=== PATIENT | male | born 1995 | race Caucasian/White ===

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

== ENCOUNTER 2017-02-01 20:37 | Emergency (ER) | payer BC ==
[~2017-02-01] VITALS: Ht 165.1 cm; Wt 64.0 kg
[2017-02-01 20:43] VITALS: TEMP 36.7; Ht 165.1 cm; Wt 64.0 kg
[2017-02-01] MEDS ORDERED: KETOROLAC TROMETHAMINE 30 MG/ML VIAL IV STA (20:59)
[2017-02-01] MEDS ORDERED: SODIUM CHLORIDE 0.9% 1000ML 1,000 ML IV STA (20:59)
[2017-02-01] MEDS ORDERED: FEXO1TAB46 PO (21:03)
[2017-02-01] MEDS ORDERED: IBUP-1050 PO (21:03)
[2017-02-01 21:28] LABS: BASO % 0.3 %; BASO ABS # 0.02 K/uL (0-0.2); COMPLETE YES; EOS % 2.9 %; HEMATOCRIT 45.1 % (42-52); IG% 0.1 %; LYMPH % 17.5 %; LYMPH ABS # 1.34 K/uL (1.2-3.4); MEAN CELL VOLUME 86.1 fL (80-100); MEAN CORPUSCULAR HEMOGLOBIN 29.4 pg (25-34); MEAN CORPUSCULAR HGB CONC 34.1 g/dl (32-36); MEAN PLATELET VOLUME 10.4 fL (7.4-10.4); MONO % 7.5 %; NEUT % 71.7 %; PLATELET COUNT 227 K/uL (130-400); RED BLOOD COUNT 5.24 M/uL (4.7-6.1); WHITE BLOOD COUNT 7.64 K/uL (4.8-10.8)
--- NOTE | 2017-02-01 21:42 | DIAGNOSTIC IMAGING REPORT ---
CHEST ONE VIEW PORTABLE HISTORY: 21 years-old Male Chest Pain acute atypical chest pain COMPARISON: None available TECHNIQUE: Portable upright AP view of the chest FINDINGS: Cardiomediastinal and hilar silhouettes are within normal limits. There is no pneumothorax, pleural effusion, focal airspace consolidation or overt pulmonary edema. Bones of the chest are grossly intact. IMPRESSION: Normal chest radiograph. The above report was generated using voice recognition software. It may contain grammatical, syntax or spelling errors. Electronically signed by: Tung Hari M.D. 02/01/2017 9:40 PM Dictated Date/Time: 02/01/2017 9:39 PM
[2017-02-01 21:48] LABS: BLOOD UREA NITROGEN 17 mg/dl (7-18); BUN/CREATININE RATIO 16.4 (10-20); CALCIUM 8.8 mg/dl (8.5-10.1); CARBON DIOXIDE 29 mmol/L (21-32); CHLORIDE 105 mmol/L (98-107); CREATININE 1.04 mg/dl (0.60-1.40); GLUCOSE 121 mg/dl (70-99); POTASSIUM 4.3 mmol/L (3.5-5.1); SODIUM 139 mmol/L (136-145)
[2017-02-01 23:01] VITALS: BP 127/68
[2017-02-01] MEDS ORDERED: VNTHFA/IN INH (23:46)
[2017-02-01 23:51] VITALS: PULSE 77; O2SAT 96
--- NOTE | 2017-02-02 00:14 | EMERGENCY ROOM VISIT NOTE ---
History Report prepared by Tonny: Kathy Mccracken Under the Supervision of: Dr. Mendez Moore D.O. First contact with patient: 20:45 Chief Complaint: CARDIAC ASSESSMENT Stated Complaint: CHEST TIGHTNESS,SOB Nursing Triage Summary: Pt reports substernal cp with sob. States pain radiates into both arms and both sides of jaw. 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 Denies recent alcohol or drug use. History of Present Illness The patient is a 21 year old male who presents to the Emergency Room with complaints of chest pain beginning an hour ago. He states that laying down exacerbates the pain and sitting up alleviates the pain. He denies alcohol use. He reports that he sometimes smokes, but not often, but states that he smoked tonight, He also reports that he has not slept much because of studying and that he has had a lot of caffeine. The patient reports having bilateral arm pain. He denies coughing up blood. The patient denies a history of diabetes, hypertension, CAD, family history of sudden at a young age and hyperlipidemia. Patient denies swelling of calves, recent trips, history of immobilization or recent surgery, prior history of DVT, hemoptysis, history of malignancy, or control/estrogen use. Source of History: patient Onset: 1 hour ago Position: chest Modifying Factors (Worsening): other (laying down ) Modifying Factors (Relieving): other (sitting up ) Associated Symptoms: No cough (denies coughing up blood ) Note: additional symptom:bilateral arm pain Review of Systems See HPI for pertinent positives & negatives. A total of 10 systems reviewed and were otherwise negative. Past Medical & Surgical Medical Problems: (1) No active medical problems Family History Pacemaker Social History Smoking Status: Current Some Day Smoker Drug Use: marijuana Occupation Status: [employer] student Current/Historical Medications Scheduled PRN Albuterol Hfa (Ventolin Hfa), 2 PUFFS INH Q6H PRN for SOB/Wheezing Fexofenadine Hcl (Nery), 180 MG PO DAILY PRN for Seasonal Allergies Ibuprofen (Advil), 400-600 MG PO Q6H PRN for Headache or Pain Allergies Coded Allergies: Fluticasone (Verified Allergy, Mild, DOESNT WORK, 09/02/16) Salmeterol (Verified Allergy, Mild, DOESNT WORK, 09/02/16) Physical Exam Vital Signs Date Time Temp Pulse Resp B/P (MAP) Pulse Ox O2 Delivery O2 Flow Rate FiO2 02/01/17 23:51 77 17 96 02/01/17 23:36 76 17 96 02/01/17 23:21 80 20 96 02/01/17 23:06 82 20 02/01/17 23:01 127/68 02/01/17 23:00 81 20 02/01/17 22:45 82 19 02/01/17 22:39 84 18 121/73 95 Room Air 02/01/17 21:45 79 20 119/72 97 Room Air 02/01/17 21:13 97 02/01/17 20:43 36.7 112 18 144/101 97 Room Air Physical Exam GENERAL: Sitting up in bed holding left chest wall, alert, well appearing, well nourished, no distress, non-toxic EYE EXAM: normal conjunctiva. OROPHARYNX: no exudate, no erythema, lips, buccal mucosa, and tongue normal and mucous membranes are moist NECK: supple, no nuchal rigidity, no adenopathy, non-tender LUNGS: Clear to auscultation. Normal chest wall mechanics HEART: no murmurs, S1 normal and S2 normal ABDOMEN: abdomen soft, non-tender, normo-active bowel sounds, no masses, no rebound or guarding. CHEST: Pain improves with splinting of left chest wall. BACK: Back is symmetrical on inspection and there is no deformity, no midline tenderness, no CVA tenderness. SKIN: no rashes and no bruising UPPER EXTREMITIES: upper extremities are grossly normal. Radial pulses are equal bilaterally. LOWER EXTREMITIES: No pitting edema. Calves are equal bilaterally. NEURO EXAM: Normal sensorium, cranial nerves II-XII grossly intact, normal speech, no gross weakness of arms, no gross weakness of legs. Medical Decision & Procedures ER Provider Diagnostic Interpretation: Radiology results as stated below per my review and the radiologist's interpretation: CHEST ONE VIEW PORTABLE HISTORY: 21 years-old Male Chest Pain acute atypical chest pain COMPARISON: None available TECHNIQUE: Portable upright AP view of the chest FINDINGS: Cardiomediastinal and hilar silhouettes are within normal limits. There is no pneumothorax, pleural effusion, focal airspace consolidation or overt pulmonary edema. Bones of the chest are grossly intact. IMPRESSION: Normal chest radiograph. The above report was generated using voice recognition software. It may contain grammatical, syntax or spelling errors. Electronically signed by: Tung Hair M.D. 02/01/2017 9:40 PM Dictated Date/Time: 02/01/2017 9:39 PM Laboratory Results 02/01/17 21:10 Red Blood Count 5.24, Mean Corpuscular Volume 86.1, Mean Corpuscular Hemoglobin 29.4, Mean Corpuscular Hemoglobin Concent 34.1, Mean Platelet Volume 10.4, Neutrophils (%) (Auto) 71.7, Lymphocytes (%) (Auto) 17.5, Monocytes (%) (Auto) 7.5, Eosinophils (%) (Auto) 2.9, Basophils (%) (Auto) 0.3, Neutrophils # (Auto) 5.48, Lymphocytes # (Auto) 1.34, Monocytes # (Auto) 0.57, Eosinophils # (Auto) 0.22, Basophils # (Auto) 0.02 02/01/17 21:10 Test 02/01/17 21:10 02/01/17 23:13 White Blood Count 7.64 K/uL (4.8-10.8) Red Blood Count 5.24 M/uL (4.7-6.1) Hemoglobin 15.4 g/dL (14.0-18.0) Hematocrit 45.1 % (42-52) Mean Corpuscular Volume 86.1 fL (80-100) Mean Corpuscular Hemoglobin 29.4 pg (25-34) Mean Corpuscular Hemoglobin Concent 34.1 g/dl (32-36) Platelet Count 227 K/uL (130-400) Mean Platelet Volume 10.4 fL (7.4-10.4) Neutrophils (%) (Auto) 71.7 % Lymphocytes (%) (Auto) 17.5 % Monocytes (%) (Auto) 7.5 % Eosinophils (%) (Auto) 2.9 % Basophils (%) (Auto) 0.3 % Neutrophils # (Auto) 5.48 K/uL (1.4-6.5) Lymphocytes # (Auto) 1.34 K/uL (1.2-3.4) Monocytes # (Auto) 0.57 K/uL (0.11-0.59) Eosinophils # (Auto) 0.22 K/uL (0-0.5) Basophils # (Auto) 0.02 K/uL (0-0.2) RDW Standard Deviation 40.5 fL (36.4-46.3) RDW Coefficient of Variation 12.8 % (11.5-14.5) Immature Granulocyte % (Auto) 0.1 % Immature Granulocyte # (Auto) 0.01 K/uL (0.00-0.02) D-Dimer < 190 ug/L FEU (0-500) Anion Gap 5.0 mmol/L (3-11) Est Creatinine Clear Calc Drug Dose 99.4 ml/min Estimated GFR () 120.1 Estimated GFR (Non- 103.6 BUN/Creatinine Ratio 16.4 (10-20) Calcium Level 8.8 mg/dl (8.5-10.1) Troponin I < 0.015 ng/ml (0-0.045) Laboratory results per my review. Medications Administered Medications (Trade) Dose Ordered Sig/Rodríguez Route Start Time Stop Time Status Last Admin Dose Admin Sodium Chloride 1,000 ml @ 999 mls/hr Q1H1M STAT IV 02/01/17 20:59 02/01/17 21:59 DC 02/01/17 21:27 999 MLS/HR Ketorolac Tromethamine (Toradol Inj) 30 mg NOW STAT IV 02/01/17 20:59 02/01/17 21:00 DC 02/01/17 21:28 30 MG ECG Indication: chest pain Rate (beats per minute): 93 Rhythm: sinus rhythm Findings: no ectopy, other (rightward axis ) ED Course ED COURSE: Vital signs were reviewed and showed tachycardia and hypertension. The patients medical record was reviewed The above diagnostic studies were performed and reviewed. ED treatments and interventions as stated above. 2049: The patient was evaluated in room B9. A complete history and physical examination was performed. 2058: Ordered Toradol Inj 30 mg IV, Sodium Chloride 1,000 ml @ 999 mls/hr IV. 2318: I checked on the patient and he is feeling better. 0002: Upon reevaluation, the patient is feeling better. I discussed the findings and the treatment plan with the patient. He verbalizes agreement and understanding. He was discharged home. Medical Decision Differential diagnoses includes but is not limited to acute coronary syndrome, myocardial infarction, pericarditis, pulmonary embolus, aortic dissection, pneumonia, pneumothorax, musculoskeletal, shingles, esophageal. Patient is a 21-year-old male who presents to ER for chest pain which started an hour prior to arrival. This did occur while smoking. CBC along with BMP was unremarkable. Troponins were negative 2. EKG did show a right axis it was repeated without any acute changes. D-dimer was negative and a low risk patient. He was given IV Toradol. He had significant improvement of symptoms. I do not believe this to be a PE as he is a low risk. Per the heart for he is extremely low risk consequently he was discharged follow-up with PCP/[facility]. Discussed with Pt concerning signs and symptoms to watch out for. Pt was instructed to follow up with their PCP and discussed with the patient their option to return to the ED at anytime for persistent or worsening symptoms. The appropriate anticipatory guidance and out-patient management, including indications for return to the emergency department, were explained at length to the patient and understood. Medication Reconcilliation Current Medication List: was personally reviewed by me Blood Pressure Screening Patient's blood pressure: Normal blood pressure Impression Primary Impression: Chest pain Scribe Attestation The scribe's documentation has been prepared under my direction and personally reviewed by me in its entirety. I confirm that the note above accurately reflects all work, treatment, procedures, and medical decision making performed by me. Departure Information Dispostion Home / Self-Care Referrals No Doctor, Assigned (PCP) Forms IMPORTANT VISIT INFORMATION Patient Instructions ED Chest Pain Atypical Unkn Cause, My [facility] Additional Instructions Please follow up with your primary care doctor or if you are a student, [facility] with in the next 24 hours. Any worsening of your symptoms, please return to the ED immediately. This includes any fevers greater than 100.4, worsening pain, chest pain, shortness breath, persistent nausea, vomiting, unable to eat or drink, or any other concerning signs or symptoms from your standpoint. Problem Qualifiers Primary Impression: Chest pain Chest pain type: unspecified Qualified Codes: R07.9 - Chest pain, unspecified
== END 2017-02-02 00:10 | disposition home or self-care (01) ==
LOC: C.EDB 20:40
DX: R07.89 Other chest pain (principal); R06.02 Shortness of breath; M79.601 Pain in right arm; M79.602 Pain in left arm; F17.210 Nicotine dependence, cigarettes, uncomplicated